=== PATIENT | male | born 1965 | race Caucasian/White ===

== ENCOUNTER → 2016-10-25 | Day surgery (SDC) | payer OTHER ==
[~2016-10-25] MED LIST: ACETAMINOPHEN/HYDROcodone 325 MG/5 MG TAB ONE; AMBI5TAB PO; BUPIVACAINE/EPINEPHRINE 0.25% PF 30 ML VIAL ONE; KETOROLAC TROMETHAMINE 30 MG/ML (IVP) VIAL IV PUSH ONE; LACTATED RINGER'S 1000 ML INJ 1,000 ML ONE; MIDAZOLAM HCL 2 MG/2 ML VIAL ONE; ONDANSETRON HCL 4 MG/2 ML VIAL IV PUSH ONE; PROPOFOL 200 MG/20 ML AMP IV ONE; TRIAMCINOLONE ACETONIDE 40 MG/ML VIAL ONE; ceFAZolin INJ 1,000 MG VIAL ONE
--- NOTE | 2016-10-28 10:28 | MP ---
cc: ENOC RODRIGUEZ M.D. DATE OF SURGERY: 10/25/2016 PREOPERATIVE DIAGNOSIS Right knee medial meniscus tear. POSTOPERATIVE DIAGNOSIS Right knee medial meniscus tear. PROCEDURE Right knee arthroscopic partial medial meniscectomy. SURGEON Dr. Enoc Rodriguez. ANESTHESIA General. ESTIMATED BLOOD LOSS Less than 10 ccs. TOURNIQUET TIME Zero minutes. COMPLICATIONS None. JUSTIFICATION The patient is a 51-year-old male with a history of increasing pain in the right knee. He has been followed by the undersigned at the [facility]. He has failed conservative treatment. Clinical exam as well as MRI confirmed the above-named findings. The patient was counseled as to the risks, benefits and alternatives to the above-named proposed surgical procedure. He did wish to proceed with surgery. PROCEDURE IN DETAIL A written consent was obtained. The patient was identified by name, taken to the operating room and placed supine on the operating table. General anesthesia was administered as well as 1 gram of IV Ancef. The right thigh was carefully placed in well-padded leg chen. The right lower extremity was prepped and draped using isopropyl alcohol, Hibiclens solution and DuraPrep solution. After time-out was performed a standard medial and lateral parapatellar arthroscopic portal was established. 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 The femoral trochlea was relatively free of chondromalacia. The medial compartment revealed a large complex tear posterior horn of medial meniscus. 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 An arthroscopic biter followed by arthroscopic shaver was introduced in the medial compartment to perform partial meniscectomy. The meniscal rim was noted to be stable. The shaver was used to perform gentle chondroplasty, the medial femoral condyle, the intercondylar notch with anterior and posterior cruciate ligaments to be intact, the lateral compartment was relatively free of meniscal pathology, chondromalacia. The shaver was then introduced into the anterior patellofemoral compartment, chondroplasty along the undersurface of patella was performed. At the conclusion of the surgical procedure 30 ccs of 0.5% Marcaine with epinephrine was injected in the knee joint mixed with 80 mg of Kenalog. The portals were closed with 3-0 Prolene suture. Sterile dressing was applied. The patient tolerated the procedure well with no intraoperative complications noted. MD JACOBO Vasquez/ALIREZA /11:41 AM /10:14 AM
== END | disposition home or self-care (01) ==
LOC: ESDC 08:57
PROVIDERS: ATTEND Orthopaedic Surgery Sports Medicine
DX: S83.231A Complex tear of medial meniscus, current injury, right knee, initial encounter (principal)
CPT/HCPCS: 01400; 29881; J0690; J1885; J2250; J2405; J3010; J3301; J7120